=== PATIENT | female | born 1965 | race Caucasian/White ===

== ENCOUNTER → 2016-03-14 | Outpatient (CLI) | payer OTHER ==
--- NOTE | 2016-03-14 08:47 | MA ---
Screening Digital Mammogram Clinical Indications: Routine screening. Mother with breast cancer at age 70. Sister with breast canc er at age 25. Two grandmother's with breast cancer. Aunt and cousin with breast cancer in their 20s a nd 30s (both ) Technique: Standard cephalocaudal and mediolateral oblique projections are obtained. This examinati on is processed by the [employer] computer aided detection system. Comparison: February 2015, February 2014, January 2013, January 2012 and March 2010 Breast density: B; There are scattered fibroglandular densities. Findings: CAD was reviewed. There are possibly 2 focal asymmetries associated with architectural dist ortion in the outer right breast. Remainder of the right and left breast are stable. Impression: Possibly 2 subtle abnormal areas in the right breast. BI-RADS 0: Needs additional imaging evaluation, right breast.. Recommendation: Spot compression mammographic views and ultrasound for further evaluation. In light of the patient's positive family history for breast cancer, she may be good candidate for lifecake counseling. She should also consider using breast MRI as a complement to annual screening mamm ography. On License Of [facility] will send a result letter to the patient. Negative mammography should not preclude additional workup of a clinically suspicious finding. The patient's information is entered into a reminder system with a target due date for her next mammo gram.
== END ==
LOC: CIMAGING 07:38
DX: Z12.31 Encounter for screening mammogram for malignant neoplasm of breast (principal); Z80.3 Family history of malignant neoplasm of breast
CPT/HCPCS: G0202

== ENCOUNTER 2016-03-16 10:46 | Emergency (ER) | payer OTHER ==
[2016-03-16 11:17] VITALS: BP 140/89; PULSE 100; TEMP 97.7; O2SAT 91
--- NOTE | 2016-03-16 11:26 | UCPHY ---
H & P Patient Type: Established Smoking Status: Never smoked Constitutional: Initial Vital Signs Temperature (C) 36.5 C 03/16/16 11:12 Heart Rate 100 03/16/16 11:12 Blood Pressure 140/89 H 03/16/16 11:12 O2 Sat (%) 91 L 03/16/16 11:12 O2 Delivery Mode Room Air Allergies/Adverse Reactions: No Known Allergies Allergy (Unverified 11/29/09 22:18) Home Medications: Medication Instructions Recorded Hydrochlorothiazide 12.5 mg PO DAILY 10/26/11 [Hydrochlorothiazide 12.5 MG (RX)] Lamictal 75mg Tid 10/26/11 Lisinopril [Zestril 10 mg (*)] 10/26/11 Venlafaxine HCl [Effexor] 100 mg PO 10/26/11 Albuterol Hfa Anes Only [Proair 2 puffs IH Q4 PRN #1 mdi 02/15/15 Hfa Icu (*)] Fluticasone Hfa 220 Mcg [Flovent 2 puffs IH DAILY #1 mdi 02/15/15 220 MCG Hfa MDI (*)] Prilosec 02/15/15
--- NOTE | 2016-03-16 11:38 | UCPHY ---
H & P Time Seen by Provider: 03/16/16 11:15 Patient Type: Established HPI/ROS: CHIEF COMPLAINT: Fall, right ankle pain HISTORY OF PRESENT ILLNESS: walking on the snow this morning when she slipped , and her right foot went into inversion. No sudden onset of pain in the right lateral malleolus. Pain was mild at 1st and she went back inside. Over the next couple hours the pain significantly worsened, as did the swelling. Very painful to ambulate on but she is able to do so minimally. There is no pain in the proximal fibula. There was no head injury or loss of consciousness. No back or chest pain. No abdominal pain. No injuries to the other extremities. No radiating pain. No lacerations or abrasions. No other associated complaints or modifying factors. REVIEW OF SYSTEMS: Ten systems reviewed and are negative unless otherwise noted in the HPI EXAMINATION General Appearance: Alert, no distress Head: normocephalic, atraumatic Eyes: Pupils equal and round, no conjunctival pallor or injection Neck: Normal inspection, supple, non-tender Cardiovascular: Regular rate, pulses intact Gastrointestinal: Abdomen is soft and nontender Back: non-tender, no bony abnormalities Neurological: A&O, Antalgic but steady gait Skin: Warm and dry, no rash Extremities: right lower extremity tenderness to palpation and edema over the lateral malleolus. There is no crepitus. No step-off. Ankle mortise appears to be intact. There is excellent cap refill distally. There is no midfoot tenderness. No calcaneal tenderness. No proximal fibular tenderness on the right. Remainder of musculoskeletal within normal limits. MDM: 11:38 right lower extremity inversion ankle injury with likely sprain versus fracture. There is moderate swelling minimal ecchymosis. X-ray of the ankle pending at this time. 12:07 Right ankle sprain with possible, punctate avulsion fracture of the lateral malleolus per radiologist. Clinically this is more likely to be a sprain. We will place her in a Cam boot and have her remain weight-bearing as tolerated in the boot and follow up with primary care versus Orthopedics for definitive care. Smoking Status: Never smoked Constitutional: Initial Vital Signs Temperature (C) 97.7 F 03/16/16 11:12 Heart Rate 100 03/16/16 11:12 Blood Pressure 140/89 H 03/16/16 11:12 O2 Sat (%) 91 L 03/16/16 11:12 O2 Delivery Mode Room Air Allergies/Adverse Reactions: No Known Allergies Allergy (Unverified 11/29/09 22:18) Home Medications: Medication Instructions Recorded Hydrochlorothiazide 12.5 mg PO DAILY 10/26/11 [Hydrochlorothiazide 12.5 MG (RX)] Lamictal 75mg Tid 10/26/11 Lisinopril [Zestril 10 mg (*)] 10/26/11 Venlafaxine HCl [Effexor] 100 mg PO 10/26/11 Albuterol Hfa Anes Only [Proair 2 puffs IH Q4 PRN #1 mdi 02/15/15 Hfa Icu (*)] Fluticasone Hfa 220 Mcg [Flovent 2 puffs IH DAILY #1 mdi 02/15/15 220 MCG Hfa MDI (*)] Prilosec 02/15/15 Departure - Departure Disposition: Home, Routine, Self-Care Clinical Impression: Fracture of lateral malleolus Qualifiers: Encounter type: initial encounter Fracture type: closed Fracture alignment: nondisplaced Laterality: right Qualifier Code: (S82.64XA) Nondisplaced fracture of lateral malleolus of right fibula, initial encounter for closed fracture Condition: Good Instructions: Ankle Fracture (ED) Referrals: Jayda Abdalla MD [Primary Care Provider] - As per Instructions - PQRS PQRS Measurement: not applicable
--- NOTE | 2016-03-16 12:00 | DX ---
Right Ankle, 3 Views, at 11:42 a.m. Clinical History: 50-year-old female with pain and swelling along the lateral aspect of the right ank le after rolling it. Comparison Study: None. Findings: There is a punctate avulsion fracture seen between the lateral malleolus and the lateral as pect of the talus. There is an old partially incorporated avulsion fragment along the undersurface of the medial malleolus. There is no mortise disruption. The talar dome is well-contoured. The subtalar joint is normal. There is a large plantar calcaneal enthesophyte. Impression: 1. There is a punctate avulsion fracture noted between the lateral malleolus and the lateral talus, w ith pronounced soft tissue swelling. 2. Partial osseous incorporation of an old medial malleolar avulsion fracture.
== END 2016-03-16 12:21 | disposition home or self-care (01) ==
LOC: CED 10:46
DX: S92.151A Displaced avulsion fracture (chip fracture) of right talus, initial encounter for closed fracture (principal); S82.61XA Displaced fracture of lateral malleolus of right fibula, initial encounter for closed fracture; W00.0XXA Fall on same level due to ice and snow, initial encounter
CPT/HCPCS: 73610-PO; 99214-PO; G0463-PO; L4386

== ENCOUNTER → 2016-03-28 | Outpatient (CLI) | payer OTHER ==
--- NOTE | 2016-03-28 15:22 | MA ---
Diagnostic digital right mammography CLINICAL HISTORY: 50-year-old female whose mother had breast cancer at age 78 and sister at age 28. T he patient is BRCA gene mutation negative, and she was noted to have a couple of subtle parenchymal a symmetries in the right breast on recent screening study. TECHNIQUE: Digital lateral medial and spot compression craniocaudal and MLO views of the right breast are compared with previous studies dated 03/14/2016, 03/10/2015, 03/09/2014, 01/28/2013, 02/07/2012, , 12/26/2007, and 08/23/1807. Additionally, the examination was iCAD checked. Breast Density: Type B. CAD Evaluation: Reviewed. FINDINGS: The areas of previously questioned parenchymal asymmetry in the central and posterolateral right breast on the craniocaudal view and in the subareolar and upper aspects of the right breast on the MLO view do not persist with spot compression, and appear to have been related to superimposition of normal fibroglandular structures. IMPRESSION: Benign mammography. BI-RADS Category 2. Recommendation: Routine annual mammographic screening. [facility] will send a result letter to the patient. Negative mammography should not preclude additional workup of a clinically suspicious finding. The patient's information is entered into a reminder system with a target due date for her next mammo gram.
== END ==
LOC: CIMAGING 12:40
DX: R92.8 Other abnormal and inconclusive findings on diagnostic imaging of breast (principal); Z80.3 Family history of malignant neoplasm of breast
CPT/HCPCS: G0206

== ENCOUNTER → 2017-03-14 | Outpatient (CLI) | payer OTHER | LOC: CIMAGING 09:27 | PROVIDERS: ATTEND Family Medicine | DX: Z12.31 Encounter for screening mammogram for malignant neoplasm of breast (principal); Z80.3 Family history of malignant neoplasm of breast ==